=== PATIENT | female | born 1955 | race Caucasian/White ===

== ENCOUNTER → 2021-12-19 | Outpatient (CLI) | payer MEDICARE ==
--- NOTE | 2021-12-19 11:54 | NM ---
EXAMINATION TYPE: NM stress cardiolite complete DATE OF EXAM: 12/19/2021 COMPARISON: NONE HISTORY: Right-sided chest pain TECHNIQUE: After the intravenous administration of 9.8 mCi Tc 99m Sestamibi - Cardiolite resting SPE CT images acquired 45 minutes post injection. At peak stress 25.3 mCi Tc 99m Sestamibi - Stress images obtained 10 minutes post injection The patient was stressed on a treadmill achieving greater than 85% of predicted maximum heart rate. FINDINGS: No fixed defects are evident No reversible stress defects on Spect images Wall motion is normal Ejection fraction is calculated to be 67 %. IMPRESSION: 1. No stress-induced ischemic changes.
--- NOTE | 2021-12-19 14:02 | EST ---
EXERCISE STRESS AGE: 66 SEX: F HT: 5'7" WT: 184 lbs. PROTOCOL: Cardiolite Jone STAGE: 2 DURATION OF EXERCISE: 4:40 HEART RATE REST: 72 BLOOD PRESSURE REST: 152/86 MAXIMUM HEART RATE ACHIEVED: 158 MAXIMUM BLOOD PRESSURE: 210/60 85% MPHR: 130 100% MPHR: 153 METS: 7.1 INDICATIONS: Chest pain. CLINICAL INFORMATION: Baseline EKG showed sinus rhythm, normal axis, normal intervals. Patient exercised on Jone protocol for a total of 4-1/2 minutes, achieving 6 METS, 103% of predicted maximal heart rate, without chest pain or diagnostic ST-segment depression. CONCLUSIONS: 1. Poor exercise tolerance. 2. Negative stress test by EKG criteria. 3. Cardiolite portion of the stress test will be reported separately. MMODL / IJN: [id number] /
== END | disposition home or self-care (01) ==
LOC: RADNMMAIN 07:26
PROVIDERS: ATTEND Family Medicine
DX: R07.9 Chest pain, unspecified (principal)
CPT/HCPCS: 93017; 78452; A9500